=== PATIENT | female | born 1980 | race American Indian/Alaskan Native ===

== ENCOUNTER 2020-07-08 09:35 | Emergency (ER) | payer MEDICAID ==
[~2020-07-08] VITALS: Ht 162.6 cm; Wt 72.7 kg
[~2020-07-08 09:35] MED LIST: CIPR-259 PO; CYCL-1 PO; IBUP-1984 PO; IBUP-1985 PO; NO HOME MEDS; ONDA8TAB6 PO; PANT-47 PO
[2020-07-08 09:50] VITALS: BP 139/87
[2020-07-08] MEDS ORDERED: PRED10TA23 PO (10:04)
== END 2020-07-08 10:15 | disposition home or self-care (01) ==
LOC: ER 09:36
DX: T63.441A Toxic effect of venom of bees, accidental (unintentional), initial encounter (principal); Z72.89 Other problems related to lifestyle; Z98.890 Other specified postprocedural states; Z88.8 Allergy status to other drugs, medicaments and biological substances; Z79.899 Other long term (current) drug therapy; Y92.89 Other specified places as the place of occurrence of the external cause
CPT/HCPCS: 99283

== ENCOUNTER 2021-07-16 08:50 | Emergency (ER) | payer MEDICAID, OTHER ==
[~2021-07-16] VITALS: Ht 160 cm; Wt 83.0 kg
[2021-07-16] MEDS ORDERED: LORazepam 1 MG tablet PO ONE (09:10)
[2021-07-16] MEDS ORDERED: HYDR50TA65 PO (09:36)
[2021-07-16 10:18] VITALS: BP 141/86
== END 2021-07-16 10:20 | disposition home or self-care (01) ==
LOC: ER 08:51
DX: G89.29 Other chronic pain (principal); M54.2 Cervicalgia; F41.9 Anxiety disorder, unspecified; F32.9 Major depressive disorder, single episode, unspecified; Z91.030 Bee allergy status
CPT/HCPCS: 93005; 99283

== ENCOUNTER 2021-10-30 19:37 | Emergency (ER) | payer MEDICAID ==
[~2021-10-30 19:37] MED LIST changes: +HYDR50TA65 PO
--- NOTE | 2021-10-30 20:28 | NUR ---
Pt. 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 reports she will go to a walk in clinic tomorrow. Pt. reports "actually my ear pain isnt that bad"
== END 2021-10-30 20:31 | disposition left against medical advice (07) ==
LOC: ER 19:37
DX: H92.09 Otalgia, unspecified ear (principal); Z53.21 Procedure and treatment not carried out due to patient leaving prior to being seen by health care provider

== ENCOUNTER 2024-11-14 10:43 | Emergency (ER) | payer SELFPAY ==
[~2024-11-14] VITALS: Ht 160 cm; Wt 77.2 kg
[2024-11-14 10:52] VITALS: TEMP 98.2
[2024-11-14 12:18] LABS: STREP A SCREEN NEGATIVE (Neg)
[2024-11-14 13:48] LABS: MONOTEST NEGATIVE (Neg)
[2024-11-14 14:03] VITALS: BP 136/89; PULSE 106; RESP 20; O2SAT 98
== END 2024-11-14 14:05 | disposition home or self-care (01) ==
LOC: ER 10:44
DX: B34.9 Viral infection, unspecified (principal); F41.9 Anxiety disorder, unspecified; F32.A Depression, unspecified; Z91.030 Bee allergy status; Z98.890 Other specified postprocedural states
CPT/HCPCS: 36415; 86308; 87081; 87880; 99283

== ENCOUNTER 2025-05-20 22:04 | Emergency (ER) | payer SELFPAY ==
[~2025-05-20] VITALS: Ht 160 cm; Wt 77.3 kg
[2025-05-20 22:25] VITALS: BP 154/78; PULSE 96; RESP 16; TEMP 98.6; O2SAT 97
[2025-05-20] MEDS ORDERED: POLOS EACHEYE (23:23)
--- NOTE | 2025-05-20 23:24 | Physician Documentation ---
History of Present Illness ~ Chief Complaint: Eye Discharge Stated Complaint: PINK EYE Time Seen by MD: 22:51 Primary Medical Doctor: NONE HPI 45-year-old female who presents to the emergency department for evaluation of red and watery eyes bilaterally. Patient reports that she woke up with her eyes crusted shut this morning. Patient denies any contacts with bacterial conjunct ivitis so she is aware of. Denies any other symptoms at this time. Medication Reconciliation Allergies: Coded Allergies: venom-honey bee (Unverified Allergy, Intermediate, 07/29/16) Scheduled Ciprofloxacin HCl (Cipro), 1 TAB PO BID Hydroxyzine HCl (Hydroxyzine HCl), 1 TAB PO Q8H Ibuprofen* (Motrin*), 800 MG PO Q8H Ondansetron HCl (Zofran), 8 MG PO Q8H PRN N/V Pantoprazole Sodium (PROTONIX tablet), 40 MG PO DAILY Scheduled PRN Cyclobenzaprine* (Cyclobenzaprine*), 1 TABLET PO Q8H PRN for muscle spasms Ibuprofen (Ibuprofen), 1 TAB PO Q8H PRN for pain Ibuprofen (Ibuprofen), 1 TAB PO Q8H PRN for mild to moderate pain Miscellaneous Medications Home Med List (No Home Medications), (Reported) Past Medical History Past Medical History: Anxiety, Depression Past Surgical History: Alcohol Use: Occasionally Drug Use: none Lives with: Family Lives In: Home Review of Systems ROS As stated above in the HPI, otherwise all systems are reviewed and negative. Physical Exam Vital Signs: Temperature: 98.6, Heart Rate: 96, Respiratory Rate: 16, BP: 154/78, Pulse Oximetry: 97, Weight: 77.270 Oxygen Flow Rate: 0 Physical Exam VITALS: Reviewed and as above. GENERAL: Alert, no apparent distress. HEENT: Normocephalic, atraumatic, PERRL, EOMI, dry mucosa, bilateral erythema itchiness and watering of eyes RESPIRATORY: Lungs clear, normal breath sounds, no respiratory distress. CHEST: No accessory muscle use, no retractions CV: Regular rate, rhythm, no edema, no murmur, No: JVD GI: Soft, non-tender, bowels sounds present, no rebound, guarding, or rigidity BACK: No CVA tenderness, or swelling MUSCULOSKELETAL No deformities, no edema SKIN: Warm and dry, no rash NEURO: Oriented x4, No motor or sensory deficit PSYCH: Normal mood and affect, no agitation Progress Results/Orders Results/Orders Vital Signs 05/20/25 22:25 Temp 98.6 Pulse 96 Resp 16 B/P (MAP) 154/78 Pulse Ox 97 O2 Flow Rate 0 Medical Decision Making Findings 45 y/o patient with conjunctivitis likely bacterial vs viral. Based on history and physical exam doubt herpes simplex keratitis, gonorrheal conjunctivitis, chlamydial conjunctivitis, orbital cellulitis, acute angle closure glaucoma or uveitis. No ocular trauma. Patient given antibiotic drops and told to follow up with primary doctor. All questions answered. Patient and family agrees with assessment and plan. Strict ED return precautions were provided. Departure Disposition: HOME / SELF CARE / HOMELESS Impression: Primary Impression: Conjunctivitis Condition: Stable Discharge Instructions: Eye - Viral Conjunctivitis, Bacterial Conjunctivitis, Adult, [id number], Allergic Conjunctivitis, Adult, [id number] Additional Instructions: 45 y/o patient with conjunctivitis likely bacterial vs viral. Based on history and physical exam doubt herpes simplex keratitis, gonorrheal conjunctivitis, chlamydial conjunctivitis, orbital cellulitis, acute angle closure glaucoma or uveitis. No ocular trauma. Patient given antibiotic drops and told to follow up with primary doctor. All questions answered. Patient and family agrees with assessment and plan. Strict ED return precautions were provided. Referrals: NO PRIMARY CARE PROVIDER (PCP) Prescriptions Polymyxin B Sulfate/Tmp Opth* (Polytrim Ophthalmic Drops*) 10 Ml Bottle 1 DRP EACHEYE Q3H for 7 Days, #1 EACH Prov: RAHEL ENGLE 05/20/25 Education Educated regarding: diagnosis, treatment, need for follow up Signature Scribe Signature: A Attestation: Scribed for Rahel Engle by JACKIE Herrmann . 05/20/25 23:23 RAHEL ENGLE May 20, 2025 23:24
== END 2025-05-20 23:32 | disposition home or self-care (01) ==
LOC: ER 22:04
DX: H10.9 Unspecified conjunctivitis (principal); Z88.8 Allergy status to other drugs, medicaments and biological substances; Z91.030 Bee allergy status
CPT/HCPCS: 99283